=== PATIENT | female | born 1965 | race Caucasian/White ===

== ENCOUNTER 2020-12-17 14:32 | Day surgery (SDC) | payer OTHER ==
[~2020-12-17] VITALS: Ht 162.6 cm; Wt 82.0 kg
[2020-12-17] MEDS ORDERED: BUPIVACAINE/PF 0.5% ONE (14:56)
[2020-12-17] MEDS ORDERED: EPINEPHRINE 1 MG/ML, 1ML ONE (14:56)
[2020-12-17] MEDS ORDERED: BUPIVACAINE/PF 0.25% ONE (14:56)
[2020-12-17 15:49] VITALS: BP 115/82
[2020-12-17] MEDS ORDERED: magnesium PO (15:58)
[2020-12-17] MEDS ORDERED: vitamin d PO (15:58)
[2020-12-17] MEDS ORDERED: aspirin PO (15:58)
[2020-12-17] MEDS ORDERED: HYDROXAZINE PO (15:58)
[2020-12-17] MEDS ORDERED: fish oil PO (15:58)
[2020-12-17] MEDS ORDERED: naproxen PO (15:58)
[2020-12-17] MEDS ORDERED: trazodone PO (15:58)
[2020-12-17] MEDS ORDERED: loratadine PO (15:58)
[2020-12-17] MEDS ORDERED: methocarbamol PO (15:58)
[2020-12-17] MEDS ORDERED: CHLORHEXIDINE 15 ML UDC PO ONE (16:00)
[2020-12-17] MEDS ORDERED: LACTATED RINGERS 1,000 ML IV SCH (16:00)
[2020-12-17] MEDS ORDERED: PROPOFOL 50 ML ONE (17:20)
[2020-12-17] MEDS ORDERED: MIDAZOLAM 1 MG/ML, 2ML ONE (17:20)
[2020-12-17] MEDS ORDERED: FENTANYL PF 250 MCG/5ML ONE (17:21)
[2020-12-17] MEDS ORDERED: DEXAMETHASONE 4 MG/ML, 1ML ONE (17:28)
[2020-12-17] MEDS ORDERED: ONDANSETRON 2MG/ML, 2ML ONE (17:28)
[2020-12-17] MEDS ORDERED: CEFAZOLIN 1,000 MG ONE (17:28)
[2020-12-17] MEDS ORDERED: BUPIVACAINE/PF-EPI 0.5% 1:200K INFIL ONE (18:13)
[2020-12-17] MEDS ORDERED: FENTANYL PF 100 MCG/2ML ONE ×2 (18:27→19:14)
[2020-12-17] MEDS ORDERED: OXYcodone 5 MG/5 ML ORAL.SOL UDC ONE (18:27)
[2020-12-17] MEDS ORDERED: LABETALOL 5MG/ML, 20ML IV PRN (18:30)
[2020-12-17] MEDS ORDERED: hydrALAzine 20 MG/ML, 1ML IV PRN (18:30)
[2020-12-17] MEDS ORDERED: ONDANSETRON 2MG/ML, 2ML IVPush PRN (18:30)
[2020-12-17] MEDS ORDERED: PROMETHAZINE 25 MG/ML, 1ML IVPush PRN (18:30)
[2020-12-17] MEDS ORDERED: OXYcodone 5 MG/5 ML ORAL.SOL UDC PO PRN (18:30)
[2020-12-17] MEDS ORDERED: MEPERIDINE/PF 25MG/0.5ML IVPush PRN (18:30)
[2020-12-17] MEDS: FENTANYL PF 100 MCG/2ML IV PRN ×4 (18:33→19:25)
[2020-12-17] MEDS ORDERED: HYDROmorphone 1 MG/ML, 1ML INJ ONE ×2 (18:34→18:52)
[2020-12-17] MEDS ORDERED: ACETAMINOPHEN 325 MG TABLET ONE (18:34)
[2020-12-17] MEDS: HYDROmorphone 1 MG/ML, 1ML INJ IVPush PRN ×4 (18:44→19:04)
[2020-12-17] MEDS ORDERED: ACETAMINOPHEN 325 MG TABLET PO PRN (19:30)
[2020-12-17] MEDS ORDERED: OXYC5TAB98 PO (19:41)
== END 2020-12-17 20:30 | disposition home or self-care (01) ==
LOC: OR 14:32
PROVIDERS: ATTEND Orthopaedic Surgery
DX: S52.571A Other intraarticular fracture of lower end of right radius, initial encounter for closed fracture (principal); J45.909 Unspecified asthma, uncomplicated; Z20.822 Contact with and (suspected) exposure to COVID-19; X58.XXXA Exposure to other specified factors, initial encounter; Y93.89 Activity, other specified; Y92.89 Other specified places as the place of occurrence of the external cause; Y99.8 Other external cause status
CPT/HCPCS: 25609; 73100; 87635; C1713; C1776; J0171; J0690; J1100; J1170; J2250; J2405; J2704; J3010; J7120; 76000